=== PATIENT | male | born 1955 | race Caucasian/White ===

== ENCOUNTER 2018-11-29 10:21 | Inpatient (IN) | payer OTHER ==
[~2018-11-29] VITALS: Ht 180.3 cm; Wt 114.3 kg
[2018-11-29 11:27] LABS: HEMATOCRIT 47.7 % (42.0-52.0); HEMOGLOBIN 16.3 g/dl (13.5-18.0); MEAN CELL VOLUME 95 fl (80.0-100.0); MEAN CORPUSCULAR HEMOGLOBIN 33 pg (27.0-31.0); MEAN CORPUSCULAR HGB CONC 34 g/dl (33.0-37.0); MEAN PLATELET VOLUME 10.2 fl (7.4-10.4); PLATELET COUNT 216 K/mm3 (130-400); REDCELL DISTRIBUTION WIDTH-CV 13.2 % (11.5-14.5)
[2018-11-29 11:40] LABS: BILIRUBIN,TOTAL 1.7 mg/dL (0.0-1.0); CALCIUM 8.9 mg/dL (8.4-10.2); CREATININE, serum 1.05 (0.66-1.25); POTASSIUM 3.7 mmol/L (3.4-5.0); TOTAL PROTEIN 7.9 gm/dL (6.4-8.2)
[2018-11-29 11:42] LABS: LYMPHOCYTE 12 % (20.0-51.0); NEUTROPHILS 84 % (42.0-75.2); PLATELET ESTIMATE NORMAL (NORMAL)
[2018-11-29] MEDS ORDERED: BACTRIM DS 8001 TAB PO (11:43)
[2018-11-29] MEDS ORDERED: ASPIRIN 81M81 MG/TA2 PO (11:44)
[2018-11-29] MEDS ORDERED: CEPHALEXIN500 M1 PO (11:44)
--- NOTE | 2018-11-29 13:20 | NUR ---
PATIENT ADMITED INTO ROOM 321-2 WITH RLE CELLULITIS. NOTED OPEN AREA TO RLE SALGADO APPROX 2 INCHES AND PINKY TOE WITH HALF DOLLAR SIZE OPEN AREA THAT IS ACTIVLY OOZING, PAD PLACED UNDER FOOT. NOTED RLE TO BE VERY WARM, RED AND EDEMA NOTED +3. NO C/O PAIN. PATIENT REPORTS HE NORMALLY CAN'T FEEL THE BOTTOMS OF HIS FEET AND HAS HAD NO PAIN WITH THE CELLULITIS AND SORES TO HIS RLE. PATIENT REPORTS A FEVER BEFORE ADMISSION. WBC 15.7 AND BLOOD CULTURES DRAWN. PATIENT REPORTS HX OF CELLULITIS IN LLE AND COMPARTMENT SYNDROME THAT RESULTED IN NACROTIC MUSCLE IN HIS RLE THAT WAS REMOVED. HEAD TO TOE ASSESSMENT COMPLETE. PATIENT RECENTLY CAME TO THE [place] 3 DAYS AGO FROM [place] FOR WORK. SEE NEW ORDERS. PATIENT ORIENTED TO ROOM. CALL LIGHT IN REACH.
[2018-11-29 13:21] VITALS: BP 140/71; PULSE 82; TEMP 98.8
--- NOTE | 2018-11-29 15:10 | NUR ---
CALLED ID CONSULT.
[2018-11-29 16:06] VITALS: BP 148/76; PULSE 81; TEMP 98.5
--- NOTE | 2018-11-29 16:10 | NUR ---
RLE WOUND CULTURE SENT
--- NOTE | 2018-11-29 17:35 | NUR ---
PATIENT C/O MILD STEPHENS. GAVE PRN TYLENOL 650.
--- NOTE | 2018-11-29 20:00 | NUR ---
REPORT RECEIVED FROM HAKEEM BERNAL. ASSUMED CARE FOR PHYSICIAN GENERAL PRACTICE. ASSESSMENT COMPLETE. VS STABLE. 20G IV TO LEFT HAND NS@ 125ML/HR INFUSING-NO SIGNS OF REDNESS OR SWELLING NOTED. RIGHT LOWER EXTREMITY ERYTHEMA TO CALF, 2CM OPEN WOUND ON LATERAL SIDE OF FOOT. 2ND AND 5TH METATARSAL WITH OPEN AREAS-DRAINING SMALL AMOUNT SEROSANGUINEOUS NOTED TO MAMIE. STOOL SAMPLE SENT TO THE LAB. DENIES QUESTIONS OR CONCERNS. ENCOURAGED TO CALL FOR NEEDS. WILL CONTINUE TO MONITOR.
[2018-11-29 20:04] VITALS: BP 134/68; PULSE 83; TEMP 97.5
[2018-11-29 23:52] VITALS: BP 145/72; PULSE 75; TEMP 98.2
[2018-11-30 04:08] VITALS: BP 130/62; PULSE 74; TEMP 99.6
--- NOTE | 2018-11-30 04:44 | NUR ---
HAS RESTED OFF AN ON THIS SHIFT. DENIES PAIN. VS REMAIN STABLE-HAS REMAINED AFEBRILE. IV TO LEFT FOREARM INFUSING NEST DOSE OF ZOZYN WITHOUT SIGNS OF REDNESS OR SWELLING. RIGHT FOOT RESTING ON PILLOW-CHUX WITH SMALL AMOUNT OF SEROSANGUINOUS DRAINGE.CALL LIGHT WITHIN REACH. ENCOURAGED TO CALL FOR QUESTIONS OR CONCERNS. VERBALIZES UNDERSTANDING. WILL MONITOR.
[2018-11-30 07:28] LABS: BASO % 0.3 % (0.0-2.0); EOS # 0.2 (0.0-0.7); EOS % 1.9 % (0-4.0); GRAN # 7.3 (1.4-6.5); GRAN % 73.2 % (42.2-75.2); HEMOGLOBIN 14.9 g/dl (13.5-18.0); LYMPH # 1.4 (1.2-3.4); LYMPH % 13.9 % (20.0-51.0); MEAN CELL VOLUME 97 fl (80.0-100.0); MEAN CORPUSCULAR HEMOGLOBIN 33 pg (27.0-31.0); MEAN CORPUSCULAR HGB CONC 34 g/dl (33.0-37.0); MEAN PLATELET VOLUME 10.4 fl (7.4-10.4); MONO % 10.2 % (1.7-9.3); PLATELET COUNT 209 K/mm3 (130-400); RED BLOOD COUNT 4.55 M/mm3 (4.20-5.60); REDCELL DISTRIBUTION WIDTH-CV 13.2 % (11.5-14.5)
[2018-11-30 07:41] LABS: CALCIUM 8.4 mg/dL (8.4-10.2); CREATININE, serum 0.87 (0.66-1.25); POTASSIUM 3.8 mmol/L (3.4-5.0)
[2018-11-30 07:53] LABS: C-REACTIVE PROTEIN 15.8 mg/dL (0.0-0.9)
[2018-11-30 08:02] VITALS: BP 157/82; PULSE 78; TEMP 98.1
--- NOTE | 2018-11-30 08:30 | NUR ---
PATIENT GETTING INTO SHOWER. COVERED IV SITE.
--- NOTE | 2018-11-30 09:37 | NUR ---
HOSPITALIST ALEAH YANGING. SEE ORDERS.
--- NOTE | 2018-11-30 11:22 | NUR ---
CONCHIS mosher and CONCHIS met with patient to discuss discharge plan. 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 Patient's (Shell) is back home in [place] and patient talked about the time difference being difficult. Patient was originally supposed to fly out of [place] to [place], [place], on Monday (12/01) morning but understands this may not be happening now. Patient plans to contact his travel agency once he knows when discharge will be to set up a new flight to [place]. Patient did not express any needs to CONCHIS and CONCHIS mosher. No identified needs at this time.
[2018-11-30 12:04] VITALS: BP 136/70; PULSE 70; TEMP 98.5
[2018-11-30 16:35] VITALS: BP 147/84; PULSE 76; TEMP 98.4
--- NOTE | 2018-11-30 19:20 | NUR ---
Patient returns from MRI per w/c.
--- NOTE | 2018-11-30 19:40 | NUR ---
IV Zosyn started, infusing to left forearm IV site without redness or swelling. Has edema to right lower leg into foot. Has large open ulcer to top right lateral foot with large blistered area with skin intact next to ulcer. Posteriorly beneath 5th digit with callous also noted callous to 2nd digit posteriorly. There is serosanguinous drainage from open ulcer. Did place a non adherent dressing over open ulcer and wrapped with gauze per pt request. Is alert and oriented x4.
[2018-11-30 20:00] VITALS: BP 162/80; PULSE 81; TEMP 97.7
--- NOTE | 2018-11-30 20:48 | NUR ---
Medicated with Tylenol 650mg po for headache. IV antibiotic infusing without problem.
[2018-12-01 00:21] VITALS: BP 135/76; PULSE 78; TEMP 98.3
--- NOTE | 2018-12-01 03:15 | NUR ---
Patient awake, IV antibiotic connected, has mild redness at IV site since return from MRI last night. Will monitor IV site, instructed patient to notify staff if site should become swollen or painful.
[2018-12-01 04:00] VITALS: BP 150/77; PULSE 75; TEMP 98.4
[2018-12-01 06:15] LABS: BASO % 0.4 % (0.0-2.0); EOS # 0.3 (0.0-0.7); EOS % 3.4 % (0-4.0); GRAN # 4.9 (1.4-6.5); HEMATOCRIT 45.7 % (42.0-52.0); HEMOGLOBIN 15.4 g/dl (13.5-18.0); LYMPH # 1.4 (1.2-3.4); LYMPH % 19.2 % (20.0-51.0); MEAN CELL VOLUME 96 fl (80.0-100.0); MEAN CORPUSCULAR HEMOGLOBIN 33 pg (27.0-31.0); MEAN CORPUSCULAR HGB CONC 34 g/dl (33.0-37.0); MEAN PLATELET VOLUME 10.2 fl (7.4-10.4); MONO # 0.8 (0.1-0.6); MONO % 11.3 % (1.7-9.3); PLATELET COUNT 256 K/mm3 (130-400); RED BLOOD COUNT 4.74 M/mm3 (4.20-5.60); REDCELL DISTRIBUTION WIDTH-CV 12.9 % (11.5-14.5)
--- NOTE | 2018-12-01 06:17 | NUR ---
No new redness at IV site. IV antibiotic infusing without problem.
[2018-12-01 06:23] LABS: CALCIUM 9.2 mg/dL (8.4-10.2); CREATININE, serum 0.84 (0.66-1.25); POTASSIUM 3.8 mmol/L (3.4-5.0)
[2018-12-01 07:40] VITALS: BP 165/78; PULSE 90; TEMP 98.4
--- NOTE | 2018-12-01 10:14 | NUR ---
Patient resting in bed upon assessment this morning. Patient had already showered and dressed. Wound on right foot redressed with a telfa and kerlix. Wound on lateral right foot is open and oozing light reddish/orange clear drainage. Dressing changes as needed. Two small blisters also present on right foot; one on bottom of foot near great toe and one lateral to the open wound. Patient denies having any pain, has neuropathy and lacks feeling in his lower legs and feet. Patient would like to know the plan for length of stay and treatment as early as possible so he can notify his employer.
--- NOTE | 2018-12-01 11:31 | NUR ---
Patient was here working at [employer] from [place]. I visited and provided spiritual care. I prayed with the patient before I left.
[2018-12-01 11:41] VITALS: BP 143/69; PULSE 74; TEMP 98.1
--- NOTE | 2018-12-01 13:04 | NUR ---
Outlined area of swelling and redness on lower right leg has receded and there is a 0.5 to 1 inch margin between the reddened area and outline. 1100 Zosyn given late due to IV going bad and needing to be replaced while Vancomycin was running. Talked with Dr. Schmitt, plan will be for fpc antibiotics with PICC line placement. Information relayed to patient. Ortho consulted and saw patient. NPO at midnight for possible procedure tomorrow.
[2018-12-01 16:30] VITALS: BP 124/74; PULSE 69; TEMP 98.1
--- NOTE | 2018-12-01 21:00 | NUR ---
Patient in bed, IV Zosyn infusing to left AC without redness or swelling. Right foot with acewrap on, has xeroform and gauze with kerlix wrap under luis wrap, s/p bedside debridement today. Patient has callous posteriorly to 2nd toe. Rt foot and gupta with mild edema and redness. Pt is aware of NPO status after midnight for possible I/D of right foot ulcer.
[2018-12-01 21:19] VITALS: BP 148/77; PULSE 80; TEMP 98.7
[2018-12-02] VITALS (12 sets, daily range): BP systolic 124–150; BP diastolic 67–82; PULSE 69–83; TEMP 97.5–98.8
--- NOTE | 2018-12-02 02:13 | NUR ---
Patient awakens for IV antibiotic. Left AC site flushes without redness or swelling, antibiotic connected and infusing without problem. No concerns offered at this time.
--- NOTE | 2018-12-02 06:00 | NUR ---
REMAINS NPO FOR POSSIBLE SURGICAL PROCEDURE TODAY.
--- NOTE | 2018-12-02 07:12 | NUR ---
REPORT RECEIVED FROM HAKEEM BRADLEY. PT RESTING IN BED COMFORTABLY AND DENIED PAIN. CALL LIGHT IN REACH.
[2018-12-02 08:19] LABS: BASO % 0.5 % (0.0-2.0); EOS # 0.3 (0.0-0.7); GRAN # 5.5 (1.4-6.5); GRAN % 61.7 % (42.2-75.2); HEMATOCRIT 48.5 % (42.0-52.0); HEMOGLOBIN 16.5 g/dl (13.5-18.0); LYMPH # 2.1 (1.2-3.4); LYMPH % 23.7 % (20.0-51.0); MEAN CELL VOLUME 96 fl (80.0-100.0); MEAN CORPUSCULAR HEMOGLOBIN 33 pg (27.0-31.0); MEAN CORPUSCULAR HGB CONC 34 g/dl (33.0-37.0); MEAN PLATELET VOLUME 9.5 fl (7.4-10.4); MONO # 0.9 (0.1-0.6); MONO % 10.4 % (1.7-9.3); PLATELET COUNT 291 K/mm3 (130-400); RED BLOOD COUNT 5.06 M/mm3 (4.20-5.60); REDCELL DISTRIBUTION WIDTH-CV 13.1 % (11.5-14.5)
[2018-12-02 08:30] LABS: CALCIUM 9.5 mg/dL (8.4-10.2); CREATININE, serum 0.94 (0.66-1.25)
--- NOTE | 2018-12-02 09:07 | NUR ---
Pt resting in bed comfortably and denied pain. Dr. Norris came in to talk to pt and will perform a surgery on his R foot. Call light in reach.
--- NOTE | 2018-12-02 13:05 | NUR ---
PT STILL IN OR AT THIS TIME.
--- NOTE | 2018-12-02 14:39 | NUR ---
PT C/O PAIN AND ASKED FOR PAIN MED. CALL LIGHT IN REACH.
--- NOTE | 2018-12-02 16:01 | NUR ---
VISIT ATTEMPTED AND PT SLEEPING SOUNDLY IN BED. CALL LIGHT IN REACH.
--- NOTE | 2018-12-02 17:12 | NUR ---
PT RESTING IN BED COMFORTABLY AND DENIED PAIN. CALL LIGHT IN REACH.
--- NOTE | 2018-12-02 18:09 | NUR ---
PT HAD A COUPLE OF BITE OF B[place]UNDI[place] MUFFIN. PT WATCHING TV IN BED W/ NO CONCERN. CALL LIGHT IN REACH.
--- NOTE | 2018-12-02 18:12 | NUR ---
PT RESTING IN BED COMFORTABLY AND DENIED PAIN. R FOOT DRESSING SITE CDI. CALL LIGHT IN REACH. PT ENCOURAGE DRINK MORE FLUID TO HYDRATE HIMSELF.
--- NOTE | 2018-12-02 21:20 | NUR ---
Patient resting in bed. Placed right foot up on pillows, dressing is dry and intact, toes are warm to touch. Patient reports pain 3/10, medicated with Barnard 7.5mg 2 tabs at this time. SL to left AC, IV Zosyn connected and infusing without redness or swelling. Pt is alert and oriented x4.
[2018-12-03 00:46] VITALS: BP 139/69; PULSE 67; TEMP 98.1
[2018-12-03 03:29] VITALS: BP 124/65; PULSE 77; TEMP 99.6
--- NOTE | 2018-12-03 06:00 | NUR ---
Patient awake, in bed. Has right leg elevated on pillows. IV Zosyn connected to left AC infusing without redness or swelling. Denies need for pain meds at this time.
[2018-12-03 07:28] LABS: HEMOGLOBIN 15.8 g/dl (13.5-18.0); MEAN CELL VOLUME 98 fl (80.0-100.0); MEAN CORPUSCULAR HEMOGLOBIN 33 pg (27.0-31.0); MEAN CORPUSCULAR HGB CONC 34 g/dl (33.0-37.0); MEAN PLATELET VOLUME 9.8 fl (7.4-10.4); PLATELET COUNT 300 K/mm3 (130-400); RED BLOOD COUNT 4.82 M/mm3 (4.20-5.60); REDCELL DISTRIBUTION WIDTH-CV 12.9 % (11.5-14.5)
[2018-12-03 07:35] VITALS: BP 133/63; PULSE 77; TEMP 98.2
[2018-12-03 07:39] LABS: CALCIUM 8.7 mg/dL (8.4-10.2); CREATININE, serum 0.93 (0.66-1.25); POTASSIUM 3.8 mmol/L (3.4-5.0)
[2018-12-03 07:52] LABS: EOSINOPHIL 2 % (0-4); LYMPHOCYTE 22 % (20.0-51.0); NEUTROPHILS 72 % (42.0-75.2); PLATELET ESTIMATE NORMAL (NORMAL)
--- NOTE | 2018-12-03 08:00 | NUR ---
HOSPITALIST CARE TEAM ROUNDING. DISCHARGE PLANS BEING DISCUSSED; PICC LINE AND IV ABX. AWAITING ORTHO RECOMMENDATIONS AND ID.
--- NOTE | 2018-12-03 08:30 | NUR ---
ORTHO AT BEDSIDE. OK WITH DISCHARGE IN 1-2 DAYS. NO ADDITIONAL SURGERIES PLANNED. ID TO DETERMINE ABX COVERAGE FOR TRAVEL. PATIENT TO RESUME ABX THERAPY AND WOUND CARE IN [facility].
--- NOTE | 2018-12-03 10:45 | NUR ---
Follow-up visit; Patient states he is doing well and is being treated well. He thanked Forensic Toxicologist for looking in on him and offering God's blessings.
[2018-12-03 11:37] VITALS: BP 160/78; PULSE 76; TEMP 98.2
--- NOTE | 2018-12-03 13:02 | NUR ---
SW attended clinical rounds to discuss the need for IV antibiotics. Patient is from [place] and will need to return there once he is discharged. Patient reports that once he gets back to [place], he will have a way to get the IV antibiotics. Doctor will speak wit ID doctor about if patient can take oral antibiotics until he is back home. SW was also informed that patient will need a walking boot when he is discharged. SW contacted [facility] about this. They report they will need clinical info and a certain form that is required. SW requested that form and will fax patient's info and completed form to [facility] this afternoon.
--- NOTE | 2018-12-03 15:30 | NUR ---
ID CALLED. PATIENT WILL BE PUT ON ORAL ABX DURING TRAVEL BACK TO [facility] THEN FOLLOW UP WITH PHYSICIAN AND START BACK UP ON IV ABX.
[2018-12-03 15:37] VITALS: BP 155/72; PULSE 95; TEMP 98.8
--- NOTE | 2018-12-03 19:30 | NUR ---
Pt. sitting up in chair at this time. Pt. is A&OX3, assessment complete. INT to lt. forearm patent. Dressing to rt. foot CDI. Pt. denies pain or other needs. Call light within reach.
[2018-12-03 20:00] VITALS: BP 137/73; PULSE 74; TEMP 97.8
[2018-12-04] VITALS: BP 141/74; PULSE 71; TEMP 98.4
[2018-12-04 04:00] VITALS: BP 141/75; PULSE 72; TEMP 98.4
--- NOTE | 2018-12-04 05:42 | NUR ---
Pt. slept well through the night. Pt. remains A&OX3. INT to lt. forearm patemt. Pt. denies pain or other needs, call light within reach.
[2018-12-04 06:15] LABS: BASO % 0.5 % (0.0-2.0); EOS # 0.3 (0.0-0.7); EOS % 4.2 % (0-4.0); GRAN # 4.2 (1.4-6.5); GRAN % 57.5 % (42.2-75.2); HEMATOCRIT 45.4 % (42.0-52.0); HEMOGLOBIN 15.4 g/dl (13.5-18.0); LYMPH # 1.8 (1.2-3.4); LYMPH % 24.8 % (20.0-51.0); MEAN CELL VOLUME 97 fl (80.0-100.0); MEAN CORPUSCULAR HEMOGLOBIN 33 pg (27.0-31.0); MEAN CORPUSCULAR HGB CONC 34 g/dl (33.0-37.0); MEAN PLATELET VOLUME 9.8 fl (7.4-10.4); MONO # 0.9 (0.1-0.6); MONO % 11.6 % (1.7-9.3); PLATELET COUNT 296 K/mm3 (130-400); RED BLOOD COUNT 4.68 M/mm3 (4.20-5.60); REDCELL DISTRIBUTION WIDTH-CV 12.7 % (11.5-14.5)
[2018-12-04 06:30] LABS: CALCIUM 8.9 mg/dL (8.4-10.2); CREATININE, serum 0.88 (0.66-1.25); POTASSIUM 4.1 mmol/L (3.4-5.0)
--- NOTE | 2018-12-04 07:57 | NUR ---
Patient sitting up in bed on his laptop. He has on online meeting this am. Patient denies needs. rounded this am & changed RLE dressing. Dressing intact to his foot. Cms intact. Will monitor.
[2018-12-04 08:34] VITALS: BP 150/76; PULSE 76; TEMP 97.9
--- NOTE | 2018-12-04 10:36 | NUR ---
Patient on another conference call, planning on shower after. Will monitor.
[2018-12-04 11:17] VITALS: BP 140/78; PULSE 92; TEMP 97.7
[2018-12-04 16:12] VITALS: BP 143/81; PULSE 82; TEMP 98.7
--- NOTE | 2018-12-04 17:55 | NUR ---
Patietn resting in bed with minimal needs today. Iv antibioitc as ordered. He showered today. Tolerating meals. Denies pain or nausea. WIll report off to night nurse
--- NOTE | 2018-12-04 19:00 | NUR ---
Report received from Hali PALACIO. Pt resting in bed. Denies needs at this time.
[2018-12-04 19:29] VITALS: BP 135/68; PULSE 87; TEMP 98
--- NOTE | 2018-12-04 20:15 | NUR ---
Report given to Elena PALACIO.
--- NOTE | 2018-12-04 21:30 | NUR ---
Shift assessment complete. Pt resting in bed, awake, a&o, cooperative c cares. Pt reports "a bit" of pain at this time; denies need for intervention. Ortho dressing noted to R foot r/t abcess s/p I&D, dressing C/D/I. INT patent. Pt denies further needs. Call light in reach, will monitor.
[2018-12-05] VITALS: BP 134/69; PULSE 66; TEMP 98.2
[2018-12-05 04:00] VITALS: BP 134/65; PULSE 75; TEMP 97.9
--- NOTE | 2018-12-05 04:14 | NUR ---
Pt resting in bed, condition unchanged. Pt has rested well this shift c very few needs. Minimal pain. Ortho dressing remians C/D/I. Pt s needs. Call light in reach.
[2018-12-05 07:27] VITALS: BP 124/76; PULSE 69; TEMP 98.6
--- NOTE | 2018-12-05 07:35 | NUR ---
Patient ready for discharge today. Patient IV zosyn per orders. Patient ordering breakfast.
[2018-12-05] MEDS ORDERED: CEPHALEXIN500 M1 PO (10:13)
--- NOTE | 2018-12-05 10:15 | NUR ---
Follow-up visit; Patient thanked Faculty Support Coordinator for looking in on him again and wishing him well. He hopes to be discharged soon.
[2018-12-05] MEDS ORDERED: TYLENOL 500MG500 MG PO (10:17)
[2018-12-05 11:25] VITALS: BP 147/91; PULSE 72; TEMP 97.3
[2018-12-05] MEDS ORDERED: ASPI325T6 PO (14:32)
--- NOTE | 2018-12-05 15:06 | NUR ---
Patient ready for discharge. rounded. Dressing changed to R.foot. We reviewed all discharge paperwork patient going to [facility] to medicinal plant picker script for keflex,tylenol, & ASA. We reviewed last time taken & medication safety. Patient sent with CAM boot & supplies for dressing change if needed. Patient sent with paperwork for his PCP, he is hoping to see them this Monday or early in the week to get set up for outpatient antibioics. Patient had first dose of Keflex here in hospital & tolerated well. Patient wheeled out with all belongigns, his friend Elana taking him to hotel for the night & he will fly back to [place] tmrw. He denies questions or concerns.
== END 2018-12-05 15:18 | disposition home or self-care (01) | DRG 854 ==
LOC: COL.ER 10:21 → SURG 11:16
PROVIDERS: Emergency Medicine; Family Medicine; Nurse Practitioner Family; Orthopaedic Surgery; Physician Assistant; ADMIT Family Medicine
PROC: 0HDKXZZ Extraction of Right Lower Leg Skin, External Approach (ICD-10-PCS; 2018-12-01)
PROC: 0JDN0ZZ Extraction of Right Lower Leg Subcutaneous Tissue and Fascia, Open Approach (ICD-10-PCS; principal; 2018-12-02 13:00)
DX: A41.01 Sepsis due to Methicillin susceptible Staphylococcus aureus (principal); L03.115 Cellulitis of right lower limb; M86.9 Osteomyelitis, unspecified; L02.415 Cutaneous abscess of right lower limb; L97.519 Non-pressure chronic ulcer of other part of right foot with unspecified severity; E78.5 Hyperlipidemia, unspecified; R19.7 Diarrhea, unspecified; R73.9 Hyperglycemia, unspecified; Z79.82 Long term (current) use of aspirin
CPT/HCPCS: 99222-AI; 99231-AI; 99232-AI; 99239; A9284; A9585; J0690; J1650; J2543; J2704; J3010; J3370; J7030; J7040; J7050